=== PATIENT | male | born 1940 | race Caucasian/White ===

== ENCOUNTER 2017-01-14 23:27 | Emergency (ER) | payer OTHER, MEDICARE ==
[~2017-01-14] VITALS: Ht 177.8 cm; Wt 98.6 kg
[~2017-01-14 23:27] MED LIST: AMLO10TAB OR; CHLORTHALIDONE PO; COLA100C2 OR; CORE40CA OR; MULTIVIT PO; SPIR25TA2 OR; TEKTURNA PO; VITA500T OR; ZETI10TA OR
[2017-01-15] MEDS ORDERED: NEOSPORIN OINT 0.9 GM PKT (FLOOR STOCK) As Ordered ONE (00:20)
== END 2017-01-15 01:07 | disposition expired ==
LOC: MERGE 23:27 → M ED 23:27
DX: I46.9 Cardiac arrest, cause unspecified (principal)